=== PATIENT | male | born 1980 | race Caucasian/White ===

== ENCOUNTER 2024-06-23 16:02 | Emergency (ER) | payer OTHER, SELFPAY ==
[2024-06-23] VITALS (22 sets, daily range): BP systolic 112–160; BP diastolic 76–129; PULSE 96–110; RESP 14–24; TEMP 37–38.8; O2SAT 94–97; BMI 44.5
--- OUTSIDE RECORDS SUMMARY | 2024-06-23 16:04 | XMS_ITS | Clinical Summary ---
Author Organization [place] Address [address] [facility] [place] [address] Care Team Providers Care Pit Furnace Melter Name Role Phone No Ref-Primary, Physician Primary Care Provider Allergies Active Allergy Reactions Criticality Noted Date Comments No Known Allergies 10/11/2000 Medications No known medications Active Problems Problem Noted Date Diagnosed Date Transplant donor evaluation 09/02/2020 Resolved Problems Problem Noted Date Diagnosed Date Resolved Date Sprain of medial collateral ligament of knee 5 09/15/2020 Contusion of knee 02/01/2003 09/15/2020 Overview (02/01/2003): 01/25/2003 injury from a fall at work: [employer] Hip, thigh, leg, and ankle, abrasion or friction burn, without mention of infection 02/01/2003 09/15/2020 Overview (02/01/2003): 01/25/2003 injury from a fall at work: [employer] Broken tooth with complication 02/01/2003 09/15/2020 Overview (12/26/2014): 01/25/2003 injury from a fall at work: [employer] Problem list name updated by automated process. Provider to review Open wound of other and mult iple sites of face, without mention of complication 02/01/2003 Overview (02/01/2003): 01/25/2003 injury from a fall at work: [employer] Immunizations Name Administration Dates Next Due TDAP Vaccine (Adacel) 06/24/2006 Family History Medical History Relation Comments Hypertension Brother Kidney Disease Brother Family History Negative No family hx of Relation Status Comments Brother Social History Tobacco Use Types Packs/Day Years Used Date Smoking Tobacco: Never Smokeless Tobacco: Current Chew Comments:4 cans per week Alcohol Use Standard Drinks/Week Comments Not Currently 0 (1 standard drink = 0.6 oz pure alcohol) h/o DWI 2017 and only rare use since PHQ-2 Answer Date Recorded PHQ-2 Score 0 10/07/2020 Adolescent Education Answer Date Record ed Getting School Help Needed Not on file 01/02 Sex and Gender Information Value Date Recorded Sex Assigned at Not on file 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 Gender Identity Not on file Sexual Orientation Not on file Last Filed Vital Signs Vital Sign Reading Time Taken Comments Blood Pressure 118/80 09/11/2020 8:[address] RAGE Pulse 70 09/11/2020 8:15 AM CDT Temperature 36.8 C (98.2 F) 08/08/2020 8:37 AM CDT Respiratory Rate 18 08/08/2020 8:37 AM CDT Oxygen Saturation 97% 09/11/2020 8:15 AM CDT Inhaled Oxygen Concentration - - Weight 120.2 kg (265 lb) 10/07/2020 7:23 AM CDT Height 184.2 cm (6' 0.5) 10/07/2020 7:23 AM CDT Body Mass Index 35.45 10/07/2020 7:23 AM CDT Plan of Treatment Not on file Insurance [place] [address] OTHER on file Care Teams Pit Furnace Melter Relationship Specialty Start Date End Date No Ref-Primary, Physician PCP - General 07/10/20
--- OUTSIDE RECORDS SUMMARY | 2024-06-23 16:04 | XMS_ITS | Encounter Summary ---
Author Organization [place] Address [address] [facility] [place] [address] Care Team Providers Care Regional Tanker Truck Driver Name Role Phone No Ref-Primary, Physician Primary Care Provider Lauri Sigala MD Unavailable Emperatriz Mckeon MD Unavailable Encounter Details Date Type Department Care Team (Late st Contact Info) Description 02/10/2021 [facility] [place] [facility] [address] [place] [address] Yanet Ahmadi RN Social History Tobacco Use Types Packs/Day Years Used Date Smoking Tobacco: Never Smokeless Tobacco: Current Chew Comments:4 cans per week Alcohol Use Standard Drinks/Week Comments Not Currently 0 (1 standard drink = 0.6 oz pure alcohol) h/o DWI 2017 and only rare use since PHQ-2 Answer Date Recorded PHQ-2 Score 0 10/07/2020 Sex and Gender Information Value Date Recorded Sex Assigned at Not on file 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
--- NOTE | 2024-06-23 16:17 | CRLHL7_ITS ---
For Patients: As a result of the Century Cures Act, medical imaging exams and procedure reports are released immediately into your electronic medical record. You may view this report before your referring provider. If you have questions, please contact your health care provider. INDICATION: Shortness of breath. TECHNIQUE: Chest 2 views. COMPARISON: September 19, 2010. FINDINGS: Cardiovascular and mediastinum: Heart size is normal. Unremarkable mediastinum. Lungs and pleural spaces: Lungs are clear. No sign of infiltrate or mass. No sign of pleural effusion. No pneumothorax. Bones and soft tissues: No significant findings. IMPRESSION: Negative chest. Dictated by Maico Conn MD @ 06/23/2024 5:08:26 PM (Electronically Signed)
--- NOTE | 2024-06-23 16:18 | ED_ITS ---
HPI - General Adult General Chief complaint: Shortness of Breath/Dyspnea Stated complaint: (SoB) Back pain, lung pain Time Seen by Provider: 06/23/24 16:04 Source: patient Mode of arrival: ambulatory Limitations: no limitations History of Present Illness HPI narrative: 43-year-old male presenting today with shortness of breath for 2 days. States that he can not lay down at night because he can not breathe. He denies cough. He states that he has an anterior right sided chest wall pain at the base of the chest wall that radiates into the mid right back. This pain is worse with deep inspiration. He denies any trauma to the area, he does not exercise. He denies chills and was unaware that he had a fever today. He denies nausea or vomiting. No changes to his appetite. Patient does not take any medications, does not smoke or vape. He denies any recent travel. No recent surgeries. States that he cannot find a comfortable position. Related Data Previous Rx's ?Medication ?Instructions ?Recorded doxycycline hyclate 100 mg capsule 100 mg PO BID 7 days #14 caps 06/23/24 metformin 500 mg tablet 500 mg PO DAILY #30 tabs 06/23/24 Allergies Allergy/AdvReac Type Severity Reaction Status Date / Time No Known Drug Allergies Allergy Verified 06/23/24 16:11 Review of Systems Status of ROS: Reports: 10 or more systems reviewed and unremarkable except as noted in History and below [facility] Social History Smoking Status: Never smoker How often do you have a drink containing alcohol: 2-3 times a week How many standard drinks containing alcohol do you have on a typical day: 5 or 6 How often do you have six or more drinks on one occasion: Weekly AUDIT-C Alcohol total score: 8 Non-prescribed substance use: denies use Exam Narrative: Exam Narrative: Obese, well-developed patient, appears uncomfortable. Alert and oriented. Answers questions appropriately. Mood and affect are appropriate. Thoughts are goal oriented and rational. No tangential or magical thinking noted. Patient speaks in full sentences without needing to catch his breath. HEENT: Normocephalic atraumatic. Pupils are equally round reactive to light. Extraocular muscles are intact. Conjunctivae are moist without any icterus noted. Moist mucous membranes. Posterior pharynx is normal. Neck is soft without any lymphadenopathy or thyromegaly. No masses are appreciated. Cardiovascular: Heart is regular rate and rhythm S1 and S2 are present without any murmurs. Lungs: Clear to auscultation bilaterally no wheezes rhonchi or rales are appreciated. Deep breathing causes discomfort. No CVA tenderness. No tenderness to palpation of the chest wall. Abdomen: Soft and nontender nondistended with normal bowel sounds. Cannot assess for organomegaly given body habitus. Extremities: Bilateral lower extremities are without pitting edema. Skin: Well perfused without any obvious rashes. Back: Normal appearance. No tenderness to palpation anywhere on the back. Const: Vital Signs, click to edit/add: Vital Signs - 24 hr 06/23/24 16:06 06/23/24 16:45 06/23/24 17:12 Temperature 101.9 F H Pulse Rate 106 H Pulse Rate [Right Pulse Oximeter] 107 H Respiratory Rate 22 Blood Pressure Blood Pressure [Ri ght Upper Arm] 160/99 H Pulse Oximetry 96 94 97 Oxygen Delivery Me thod Room Air 06/23/24 17:15 06/23/24 17:16 06/23/24 17:17 Temperature Pulse Rate 106 H 102 H 102 H Pulse Rate [Right Pulse Oximeter] Respiratory Rate 14 24 22 Blood Pressure 148/129 H 148/129 H Blood Pressure [Ri ght Upper Arm] Pulse Oximetry 97 97 96 Oxygen Delivery Me thod Room Air 06/23/24 17:19 06/23/24 17:21 06/23/24 17:30 Temperature Pulse Rate 104 H 96 103 H Pulse Rate [Right Pulse Oximeter] Respiratory Rate 21 24 19 Blood Pressure 133/96 H 133/96 H Blood Pressure [Ri ght Upper Arm] Pulse Oximetry 96 97 97 Oxygen Delivery Me thod 06/23/24 17:45 06/23/24 17:51 06/23/24 18:00 Temperature Pulse Rate 106 H 109 H 106 H Pulse Rate [Right Pulse Oximeter] Respiratory Rate 23 17 21 Blood Pressure 138/88 Blood Pressure [Ri ght Upper Arm] Pulse Oximetry 96 96 96 Oxygen Delivery Me thod 06/23/24 18:15 06/23/24 18:21 06/23/24 18:28 Temperature 98.6 F Pulse Rate 108 H 108 H Pulse Rate [Right Pulse Oximeter] Respiratory Rate 23 22 Blood Pressure 127/90 H Blood Pressure [Ri ght Upper Arm] Pulse Oximetry 96 95 Oxygen Delivery Me thod 06/23/24 18:28 Temperature 98.6 F Pulse Rate Pulse Rate [Right Pulse Oximeter] Respiratory Rate Blood Pressure Blood Pressure [Ri ght Upper Arm] Pulse Oximetry Oxygen Delivery Me thod Course Course ED Course: Chest x-ray, read by me, does not show any acute infiltrates. No evidence of pneumothorax, pneumonia. EKG, read by me, shows sinus tachycardia with a pulse of 106. Blood work is entirely unremarkable except for slightly elevated CRP in markedly elevated glucose. Normal D-dimer. IV is established in patient is given a L of normal saline, oral Tylenol and 5 units of regular insulin. Kennedy better after Tylenol. Sugar came down to 98.6, however pulse remained elevated at 108. Because of this we did go ahead and proceed with a chest CT PE protocol - this showed some paratracheal and perihilar adenopathy, an 8 mm pulmonary nodule and a very small right-sided pleural effusion, which could potentially be the source of his discomfort. Vital Signs Vital signs: Initial Vital Signs Temperature 101.9 F H 06/23/24 16:06 Temperature Source Temporal Artery Scan 06/23/24 16:06 Pulse Rate 107 H 06/23/24 16:06 Respiratory Rate 22 06/23/24 16:06 Blood Pressure 160/99 H 06/23/24 16:06 Blood Pressure Mean 119 H 06/23/24 16:06 Blood Pressure Position Sitting 06/23/24 16:06 Pulse Oximetry 96 06/23/24 16:06 Oxygen Delivery Method Room Air 06/23/24 16:06 Vital Signs Temperature 101.9 F H 06/23/24 16:06 Pulse Rate 107 H 06/23/24 16:06 Respiratory Rate 22 06/23/24 16:06 Blood Pressure 160/99 H 06/23/24 16:06 Pulse Oximetry 96 06/23/24 16:06 Oxygen Delivery Method Room Air 06/23/24 16:06 Temperature 98.6 F 06/23/24 18:28 Pulse Rate 108 H 06/23/24 18:21 Respiratory Rate 22 06/23/24 18:21 Blood Pressure 127/90 H 06/23/24 18:21 Pulse Oximetry 95 06/23/24 18:21 Oxygen Delivery Method Room Air 06/23/24 17:17 Medications Administered Medications: Generic Name Dose Route Start Last Admin Trade Name Ronnie PRN Reason Stop Dose Admin Acetaminophen 1,000 mg 06/23/24 16:16 06/23/24 17:18 Acetaminophen 500 Mg Tablet PO 06/23/24 16:17 1,000 mg ONCE ONE Administration Sodium Chloride 1,000 mls @ 1,000 mls/hr 06/23/24 18:00 06/23/24 18:11 0.9 % Sodium Chloride 1000 Ml IV 06/23/24 18:59 1,000 mls/hr .Q1H MAKENNA Administration Insulin Human Regular 5 unit 06/23/24 18:00 06/23/24 18:25 Insulin Regular, Human 100 Unit/Ml Vial IVP 06/23/24 18:01 5 unit ONCE ONE Administration Medical Decision Making MDM Narrative Medical decision making narrative: 43-year-old male presenting with fever, small right-sided pleural effusion and hilar lymphadenopathy. Given the unclear etiology of his symptoms go ahead and put him on doxycycline at this time. Also found to have new onset diabetes. Patient will be started on metformin. He will establish care with primary care provider this coming week. He will use Tylenol as needed for fevers and achiness. Lab Data Lab results reviewed: Yes I reviewed the patient's lab results Labs: Lab Results 06/23/24 06/23/24 06/23/24 Range/Units 16:17 16:45 17:08 WBC 9.80 (4.50-11.00) K/uL RBC 5.32 (4.30-5.90) m/uL Hgb 16.1 (13.5-17.5) gm/dL Hct 47.1 (37.0-53.0) % MCV 89 (80-100) fL MCH 30 (26-34) pg MCHC 34 (32-36) gm/dL RDW Coeff of Dash 12.4 (11.5-15.5) % Plt Count 152 (140-440) K/uL Neut % (Auto) 76.5 H (42.0-72.0) % Lymph % (Auto) 16.3 L (20-44) % Edgar % (Auto) 6.3 (0.0-11.0) % Eos % (Auto) 0.5 (0.0-7.0) % Baso % (Auto) 0.1 (0.0-3.0) % Neut # (Auto) 7.50 H (1.7-7.0) K/uL Lymph # (Auto) 1.60 (0.90-2.90) K/uL Edgar # (Auto) 0.60 (0.00-0.90) K/UL Eos # (Auto) 0.05 (0.00-0.50) K/uL Baso # (Auto) 0.01 (0.00-0.30) K/uL Abs Immat Gran (auto) 0.03 (0.00-0.30) K/uL Imm/Tot Granulo (auto) 0.3 % D-Dimer Quant (PE/DVT) < 0.27 (0.00-0.50) ug/ml Sodium 135 (135-149) mmol/L Potassium 4.2 (3.6-5.1) mmol/L Chloride 99 (96-114) mmol/L Carbon Dioxide 25 (20-32) mmol/L Anion Gap 11 (7-15) mEq/L BUN 10 (5-24) mg/dL Creatinine 0.7 (0.5-1.5) mg/dL Estimated Creat Clear 149.35 Estimated GFR 117 ml/min Glucose 361 H* (60-115) mg/dL Lactate 1.6 (0.5-1.9) mmol/L Calcium 9.2 (8.4-10.6) mg/dL Total Bilirubin 1.4 (0.1-1.5) mg/dL Direct Bilirubin 0.3 (0.0-0.5) mg/dL AST 45 H (12-35) U/L ALT 37 (4-50) U/L Alkaline Phosphatase 125 (40-150) U/L Troponin I < 0.01 (0.01-0.04) ng/mL C-Reactive Protein 7.0 H (0.5-1.0) mg/dL Total Protein 7.2 (6.0-8.3) g/dL Albumin 4.3 (3.3-5.0) g/dL Lipase 61 (23-300) U/L Procalcitonin 0.21 (<0.50) ng/mL SARS-CoV-2 (PCR) Negative SARS-CoV-2 (Negative) Influenza Type A (PCR) Negative PCR FLU A (Negative) Influenza Type B (PCR) Negative PCR FLU B (Negative) RSV (PCR) Negative PCR RSV (Negative) POC Glucose (60-115) mg/dl POC Troponin I 0.02 (0.01-0.04) ng/ml 06/23/24 Range/Units 18:54 WBC (4.50-11.00) K/uL RBC (4.30-5.90) m/uL Hgb (13.5-17.5) gm/dL Hct (37.0-53.0) % MCV (80-100) fL MCH (26-34) pg MCHC (32-36) gm/dL RDW Coeff of Dash (11.5-15.5) % Plt Count (140-440) K/uL Neut % (Auto) (42.0-72.0) % Lymph % (Auto) (20-44) % Edgar % (Auto) (0.0-11.0) % Eos % (Auto) (0.0-7.0) % Baso % (Auto) (0.0-3.0) % Neut # (Auto) (1.7-7.0) K/uL Lymph # (Auto) (0.90-2.90) K/uL Edgar # (Auto) (0.00-0.90) K/UL Eos # (Auto) (0.00-0.50) K/uL Baso # (Auto) (0.00-0.30) K/uL Abs Immat Gran (auto) (0.00-0.30) K/uL Imm/Tot Granulo (auto) % D-Dimer Quant (PE/DVT) (0.00-0.50) ug/ml Sodium (135-149) mmol/L Potassium (3.6-5.1) mmol/L Chloride (96-114) mmol/L Carbon Dioxide (20-32) mmol/L Anion Gap (7-15) mEq/L BUN (5-24) mg/dL Creatinine (0.5-1.5) mg/dL Estimated Creat Clear Estimated GFR ml/min Glucose (60-115) mg/dL Lactate (0.5-1.9) mmol/L Calcium (8.4-10.6) mg/dL Total Bilirubin (0.1-1.5) mg/dL Direct Bilirubin (0.0-0.5) mg/dL AST (12-35) U/L ALT (4-50) U/L Alkaline Phosphatase (40-150) U/L Troponin I (0.01-0.04) ng/mL C-Reactive Protein (0.5-1.0) mg/dL Total Protein (6.0-8.3) g/dL Albumin (3.3-5.0) g/dL Lipase (23-300) U/L Procalcitonin (<0.50) ng/mL SARS-CoV-2 (PCR) (Negative) Influenza Type A (PCR) (Negative) Influenza Type B (PCR) (Negative) RSV (PCR) (Negative) POC Glucose 283 H (60-115) mg/dl POC Troponin I (0.01-0.04) ng/ml Imaging Data Chest x-ray: Attestation: I have reviewed the pertinent imaging results. Radiologist's impression: Chest 2 views. COMPARISON: September 19, 2010. FINDINGS: Cardiovascular and mediastinum: Heart size is normal. Unremarkable mediastinum. Lungs and pleural spaces: Lungs are clear. No sign of infiltrate or mass. No sign of pleural effusion. No pneumothorax. Bones and soft tissues: No significant findings. IMPRESSION: Negative chest. CT scan - chest: Attestation: I have reviewed the pertinent imaging results. Radiologist's impression: TECHNIQUE: CT chest with i.v. contrast using pulmonary angiographic technique. MIPS, coronal and sagittal reformats were obtained. CONTRAST: 95 mL Isovue 370 COMPARISON: 03/14/2010 FINDINGS: Cardiovascular: The pulmonary arteries are unremarkable in enhancement with no evidence of acute pulmonary embolism. The heart has an unremarkable appearance and size. No sign of aneurysm in the thoracic aorta. Mediastinum: New right paratracheal and hilar adenopathy are present with a lymph node measuring 1.3 cm. Lung: A 8 mm nodule is noted in the subpleural anterior right upper lobe on image 52, series 5. High-risk patients can include those of older age, history of heavy smoking, and upper lobe nodules or nodules with irregular or spiculated margins. Fleischner Society Recommendations are not applicable in patients younger than 35, patients with known cancer or immunocompromised states. Pleura and pericardium: A small right pleural effusion is present. No significant pericardial effusion is present. Chest wall and axilla: Ill-defined soft tissue is seen in the retroareolar complexes of the chest bilaterally and most likely due to gynecomastia. Bone: Unremarkable for age. Upper abdomen: Severe fatty infiltration of the liver is present. IMPRESSIONS: 1. No CT evidence of acute pulmonary emboli seen. 2. New right paratracheal and hilar adenopathy are present with a lymph node measuring 1.3 cm. 3. Severe fatty infiltration of the liver is present. Clinical correlation is recommended to exclude metabolic dysfunction-associated steatotic liver disease (MASLD) or alcohol-related/associated liver disease (MetALD). 4. A small right pleural effusion is present. 5. A new 8 mm nodule is noted in the subpleural anterior right upper lobe on image 52, series 5. In accordance with the 2017 Revised Fleischner Society Recommendations, initial follow-up CT in 6-12 months and then scans at 18-24 months are recommended if the patient has a high risk stratification. ECG Data Attestation: I personally reviewed and interpreted this ECG as follows: Discharge Plan Discharge Clinical Impression: Diabetes type 2, Fever Patient Disposition: Home, Self-Care Condition: Stable Instructions: Fever in Adults (ED) Additional Instructions: Your workup today revealed several swollen lymph nodes in the chest area consistent with infection and a small amount of fluid in the right lung, which can also be consistent with infection. Because of all this you will be placed on an antibiotic. However, given the size of the lymph nodes in your chest you do need to follow-up with a physician to have follow-up care, you may need to see a lung specialist depending on what your primary care provider says. Okay to take Tylenol as needed/as directed for achiness and for fever. You did have a significantly elevated glucose at 361. This likely means that you have diabetes type 2. Will start you on metformin 500 mg once daily- this medication dosage will need to be adjusted over the next couple of weeks. You need to establish care with a primary care provider this coming week for ongoing management, recheck of your blood sugar and recheck of your fever. Lastly, it looks like you have fatty infiltration of the liver. This is something that needs to be monitored by your doctor. Prescriptions: New metformin 500 mg tablet 500 mg PO DAILY Qty: 30 0RF doxycycline hyclate 100 mg capsule 100 mg PO BID 7 Days Qty: 14 0RF Follow Up/Referrals: Hien Causey MD [Emergency Provider] - Stand Alone Forms: [employer] Info Instructions
--- OUTSIDE RECORDS SUMMARY | 2024-06-23 16:26 | XMS_ITS | Encounter Summary ---
Author Organization [place] Address [address] [facility] 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
--- OUTSIDE RECORDS SUMMARY | 2024-06-23 16:26 | XMS_ITS | Clinical Summary ---
Author Organization [place] Address [address] [facility] [place] [address] Care Team Providers Care Sexual Assault Nurse Name Role Phone No Ref-Primary, Physician Primary [...] 01/25/2003 injury from a fall at work: [employer] Hip, thigh, leg, and ankle, abrasion or friction burn, without mention of infection 02/01/2003 09/15/2020 Overview (02/01/2003): 01/25/2003 injury from a fall at work: [employer] Broken tooth with complication 02/01/2003 09/15/2020 Overview (12/26/2014): 01/25/2003 injury from a fall at work: [employer] Problem list name updated by automated process. 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
[2024-06-23] MEDS: ACETAMINOPHEN 500 MG TABLET 1000 MG PO (17:18)
[2024-06-23 17:19] LABS: Lactate* 1.6 mmol/L (0.5-1.9)
[2024-06-23 17:21] LABS: Basophils Absolute Auto 0.01 K/uL (0.00-0.30); Basophils Percent Auto 0.1 % (0.0-3.0); Eosinophils Absolute Auto 0.05 K/uL (0.00-0.50); Eosinophils Percent Auto 0.5 % (0.0-7.0); Hematocrit 47.1 % (37.0-53.0); Hemoglobin* 16.1 gm/dL (13.5-17.5); Immature Granulocytes Abs Auto 0.03 K/uL (0.00-0.30); Immature Granulocytes Pct Auto 0.3 %; Lymphocytes Percent Auto 16.3 % (20-44); Mean Corpuscular HGB Conc 34 gm/dL (32-36); Mean Corpuscular Hemoglobin 30 pg (26-34); Mean Corpuscular Volume 89 fL (80-100); Monocytes Percent Auto 6.3 % (0.0-11.0); Neutrophils Percent Auto 76.5 % (42.0-72.0); Platelet Count* 152 K/uL (140-440); RDW Coefficient of Variation % 12.4 % (11.5-15.5); Red Blood Count 5.32 m/uL (4.30-5.90)
[2024-06-23 17:24] LABS: Troponin, Point-of-Care* 0.02 ng/ml (0.01-0.04)
[2024-06-23 17:28] LABS: Slide Review Reflex No
[2024-06-23 17:31] LABS: PCR FLU A Negative PCR FLU A (Negative); PCR FLU B Negative PCR FLU B (Negative); PCR RSV Negative PCR RSV (Negative); SARS PCR* Negative SARS-CoV-2 (Negative)
[2024-06-23 17:37] LABS: Albumin* 4.3 g/dL (3.3-5.0); Chloride* 99 mmol/L (96-114)
[2024-06-23 17:38] LABS: Potassium* 4.2 mmol/L (3.6-5.1); Sodium* 135 mmol/L (135-149)
[2024-06-23 17:40] LABS: Blood Urea Nitrogen* 10 mg/dL (5-24); Creatinine* 0.7 mg/dL (0.5-1.5); Est. Creatinine Clearance* 149.35; Estimated Glomerular Filt Rate 117 ml/min
[2024-06-23 17:41] LABS: Alanine Aminotransferase* 37 U/L (4-50); Alkaline Phosphatase* 125 U/L (40-150); Anion Gap 11 mEq/L (7-15); Aspartate Amino Transferase* 45 U/L (12-35); Bilirubin Direct* 0.3 mg/dL (0.0-0.5); Bilirubin Total* 1.4 mg/dL (0.1-1.5); Calcium* 9.2 mg/dL (8.4-10.6); Carbon Dioxide* 25 mmol/L (20-32); Lipase* 61 U/L (23-300); Total Protein* 7.2 g/dL (6.0-8.3)
[2024-06-23 17:44] LABS: Glucose* 361 mg/dL (60-115)
[2024-06-23 17:56] LABS: Troponin I* < 0.01 ng/mL (0.01-0.04)
[2024-06-23 17:58] LABS: Procalcitonin* 0.21 ng/mL (<0.50)
[2024-06-23 18:05] LABS: D Dimer Quantitative* < 0.27 ug/ml (0.00-0.50)
[2024-06-23] MEDS: 0.9 % SODIUM CHLORIDE 1000 ml 1,000 ML IV (18:11)
[2024-06-23] MEDS: INSULIN REGULAR, HUMAN 100 UNIT/ML VIAL IVP (18:25)
--- NOTE | 2024-06-23 18:36 | CRLHL7_ITS ---
For Patients: As a result of the 21st Century Cures Act, medical imaging exams and procedure reports are released immediately into your electronic medical record. You may view this report before your referring provider. If you have questions, please contact your health care provider. INDICATION: Shortness of breath, tachycardia, right chest pain TECHNIQUE: CT chest with i.v. contrast using pulmonary angiographic technique. MIPS, coronal and sagittal reformats were obtained. CONTRAST: 95 mL Isovue 370 COMPARISON: 03/14/2010 FINDINGS: Cardiovascular: The pulmonary arteries are unremarkable in enhancement with no evidence of acute pulmonary embolism. The heart has an unremarkable appearance and size. No sign of aneurysm in the thoracic aorta. Mediastinum: New right paratracheal and hilar adenopathy are present with a lymph node measuring 1.3 cm. Lung: A 8 mm nodule is noted in the subpleural anterior right upper lobe on image 52, series 5. High-risk patients can include those of older age, history of heavy smoking, and upper lobe nodules or nodules with irregular or spiculated margins. Fleischner Society Recommendations are not applicable in patients younger than 35, patients with known cancer or immunocompromised states. Pleura and pericardium: A small right pleural effusion is present. No significant pericardial effusion is present. Chest wall and axilla: Ill-defined soft tissue is seen in the retroareolar complexes of the chest bilaterally and most likely due to gynecomastia. Bone: Unremarkable for age. Upper abdomen: Severe fatty infiltration of the liver is present. IMPRESSIONS: 1. No CT evidence of acute pulmonary emboli seen. 2. New right paratracheal and hilar adenopathy are present with a lymph node measuring 1.3 cm. 3. Severe fatty infiltration of the liver is present. Clinical correlation is recommended to exclude metabolic dysfunction-associated steatotic liver disease (MASLD) or alcohol-related/associated liver disease (MetALD). 4. A small right pleural effusion is present. 5. A new 8 mm nodule is noted in the subpleural anterior right upper lobe on image 52, series 5. In accordance with the 2017 Revised Fleischner Society Recommendations, initial follow-up CT in 6-12 months and then scans at 18-24 months are recommended if the patient has a high risk stratification. REFERENCE: 1. Wood H, Dino Chang et al. Guidelines for Management of Incidental Pulmonary Nodules Detected on CT Images: From the Fleischner Society 2017. Radiology. 2017;284(1):228-43. DOI:10.1148/[id number] - Pubmed. Dictated by Geovani Abbott MD @ 06/23/2024 7:00:35 PM Please note that all CT scans at this facility use dose modulation, iterative reconstruction, and/or weight-based dosing when appropriate to reduce radiation dose to as low as reasonably achievable. Dictated by: Geovani Abbott MD @ 06/23/2024 19:04:52 (Electronically Signed)
[2024-06-23 19:00] LABS: Glucose, Point-of-Care* 283 mg/dl (60-115)
== END 2024-06-23 19:39 | disposition home or self-care (01) ==
PROVIDERS: Emergency Provider Family Medicine
DX: E11.9 Type 2 diabetes mellitus without complications (principal); R50.9 Fever, unspecified
CPT/HCPCS: 36415; 71046; 71275; 80048; 80076; 82947; 83605; 83690; 84145; 84484; 85025; 85379; 86140; 87631; 93005; 94761; 99284; 99285; A9270; J7030; Q9967

== ENCOUNTER 2024-06-28 08:57 | Outpatient (CLI) | payer OTHER, SELFPAY | END 2024-06-28 08:58 | disposition home or self-care (01) | PROVIDERS: Visit Provider Emergency Medicine | DX: E11.65 Type 2 diabetes mellitus with hyperglycemia (principal); K76.0 Fatty (change of) liver, not elsewhere classified; Z79.84 Long term (current) use of oral hypoglycemic drugs | CPT/HCPCS: 80061; 82043; 82570; 86140 ==

== ENCOUNTER 2024-07-31 08:29 | Outpatient (CLI) | payer OTHER, SELFPAY | END 2024-07-31 08:30 | disposition home or self-care (01) | LOC: LKVREF 08:30 | PROVIDERS: PCP Emergency Medicine; Visit Provider Emergency Medicine | DX: J90 Pleural effusion, not elsewhere classified (principal); R59.0 Localized enlarged lymph nodes; R91.1 Solitary pulmonary nodule; R03.0 Elevated blood-pressure reading, without diagnosis of hypertension; K76.0 Fatty (change of) liver, not elsewhere classified | CPT/HCPCS: 86140 ==